=== PATIENT | female | born 1960 | race Caucasian/White ===

== ENCOUNTER → 2021-04-02 | Outpatient (CLI) | payer BC | LOC: LAB 09:57 | DX: M96.1 Postlaminectomy syndrome, not elsewhere classified (principal) | CPT/HCPCS: 87081 ==

== ENCOUNTER → 2021-11-26 | Outpatient (CLI) | payer BC, OTHER | LOC: KOH-I 10:44 | DX: M79.671 Pain in right foot (principal); S92.911D Unspecified fracture of right toe(s), subsequent encounter for fracture with routine healing | CPT/HCPCS: 73630 ==